=== PATIENT | female | born 2005 | race African-American/Black ===

== ENCOUNTER 2023-04-26 18:53 | Emergency (ER) | payer MEDICAID, SELFPAY ==
[2023-04-26 19:06] VITALS: BP 120/84; PULSE 78; RESP 16; TEMP 37.2; O2SAT 96; BMI 21.0
--- NOTE | 2023-04-26 19:06 | ECG_ITS ---
[facility] Test Date: 2023-04-26 Pat Name: DAISY POLANCO Department: Room: - Gender: Female Seo Specialist: : [id number] Requested By: Order Number: [id number] Reading MD: INOCENTE GIBBS Measurements Intervals [place] Rate: 67 P: 75 VT: 146 QRS: 101 QRSD: 86 T: 51 QT: 408 QTc: 423 Interpretive Statements 1100 Sinus rhythm 1102 Sinus arrhythmia 7100 Abnormal right axis deviation 9130 borderline ECG No previous ECG available for comparison Electronically Signed On 04-27-2023 7:11:57 EDT by INOCENTE GIBBS
--- NOTE | 2023-04-26 19:17 | ED.MEDCLEAR1 ---
HPI - Medical Clearance General Chief complaint: Medical Clearance Stated complaint: Medical Clearance Time Seen by Provider: 04/26/23 19:05 Source: patient Mode of arrival: walk-in History of Present Illness HPI Narrative: This 18 year-old female with a history of bipolar disorder and substance abuse presents for evaluation for medical clearance for psychiatric admission to [address] [place] [address]. She states that she was formally on Latuda for her bipolar disorder but only had a 15 day supply and when she ran out she started having some auditory hallucinations. She states that she doesn't know if it is her conscience speaking to her or voices in her head however when she is on the medication she is not experiencing the voices. She also states that the voices at times argue with each other so she does not think it's her conscience. She denies that she is suicidal but states that she recently went off the rails by that she means that she use cocaine. She states that she has been diagnosed with bipolar disorder but never diagnosed with schizophrenia. She denies any chest pain or shortness of breath. She does the possibility of but is not sure. Related Information Allergies Allergy/AdvReac Type Severity Reaction Status Date / Time sulfamethoxazole Allergy Severe Verified 04/26/23 19:06 [From Bactrim] trimethoprim [From Bactrim] Allergy Severe Verified 04/26/23 19:06 Review of Systems ROS Status of ROS 10 or more systems reviewed and unremarkable except as noted in history and below Exam Narrative Exam Narrative: Nurses note and vital signs reviewed and patient is not hypoxic. General: The patient appears well and in no apparent distress. Patient is resting comfortably on cart. Skin: Warm, dry, no pallor noted. There is no rash noted. Head: Normocephalic, atraumatic Eye: Normal conjunctiva, no drainage, EOMI. PERRL Ears, Nose, Mouth, and Throat: oral mucosa is moist. Nares patent. Multiple facial piercings Cardiovascular: Regular Rate and Rhythm On S2, no murmurs rubs or gallops Respiratory: Patient is in no distress, no accessory muscle use, lungs are clear to auscultation, no wheezing, rales or rhonchi Back: non-tender, no CVA tenderness bilaterally to percussion. GI: Normal bowel sounds, no tenderness to palpation, no masses appreciated. No rebound, guarding, or rigidity noted. Musculoskeletal: The patient has no evidence of calf tenderness, no pitting edema, symmetrical pulses noted bilaterally Neurological: A&O x4, normal speech Psychiatric: Cooperative, Admits to ongoing auditory hallucinations, denies suicidal ideation Constitutional Vital Signs, click to edit/add: Last Vital Signs Temp 98.9 F 04/26/23 19:06 Pulse 78 04/26/23 19:06 Resp 16 04/26/23 19:06 BP 120/84 04/26/23 19:06 Pulse Ox 96 04/26/23 19:06 O2 Del Method Room Air 04/26/23 19:30 Course Vital Signs Vital signs: Vital Signs Temperature 98.9 F 04/26/23 19:06 Pulse Rate 78 04/26/23 19:06 Respiratory Rate 16 04/26/23 19:06 Blood Pressure 120/84 04/26/23 19:06 Pulse Oximetry 96 04/26/23 19:06 Oxygen Delivery Method Room Air 04/26/23 19:06 Temperature 98.9 F 04/26/23 19:06 Pulse Rate 78 04/26/23 19:06 Respiratory Rate 16 04/26/23 19:06 Blood Pressure 120/84 04/26/23 19:06 Pulse Oximetry 96 04/26/23 19:06 Oxygen Delivery Method Room Air 04/26/23 19:30 MDM - Medical Clearance MDM Narrative Medical decision making narrative: This 18-year-old female presents for evaluation and for medical clearance for psychiatric admission. She is currently at [facility] center for substance abuse. She states that she was formally on Latuda and has been off of it recently relapsed on cocaine and marijuana. She denies suicidal ideation but does have a history of bipolar disorder and is having audio hallucinations. She has a normal EKG. Her labs are normal. Alcohol is negative. Tox is positive for cocaine and marijuana. The results of the medical clearance labs and EKG were discussed with [facility] and she is accepted for transfer to by Dr Edwards Lab Data Labs: Lab Results 04/26/23 Range/Units 19:20 WBC 7.6 (4.0-11.0) 10^3/uL RBC 4.25 (4.20-5.40) 10^6/uL Hgb 13.6 (12.0-16.0) g/dL Hct 39.5 (36.0-48.0) % MCV 92.9 (81.0-99.0) fL MCH 32.0 (26.7-34.0) pg MCHC 34.4 (29.9-35.2) g/dL RDW 12.5 (11.0-15.0) % Plt Count 299 (150-450) 10^3/uL MPV 9.0 L (9.5-13.5) fL Neut % (Auto) 63.0 (43.0-75.0) % Lymph % (Auto) 20.4 L (20.5-60.0) % Hale % (Auto) 8.5 (1.7-12.0) % Eos % (Auto) 7.7 H (0.9-7.0) % Baso % (Auto) 0.3 (0.2-2.0) % Neut # (Auto) 4.8 (1.4-6.5) 10^3/uL Lymph # (Auto) 1.5 (1.2-3.8) 10^3/uL Hale # (Auto) 0.6 (0.3-0.8) 10^3/uL Eos # (Auto) 0.6 (0.0-0.7) 10^3/uL Baso # (Auto) 0.0 (0.0-0.1) 10^3/uL Abs Immat Gran (auto) 0.01 (0.00-0.03) 10^3/uL Imm/Tot Granulo (auto) 0.1 (0.0-0.5) % Sodium 139 (136-145) mmol/L Potassium 3.6 (3.5-5.1) mmol/L Chloride 102 (98-107) mmol/L Carbon Dioxide 27.6 (21.0-32.0) mmol/L Anion Gap 13.0 BUN 10.0 (7.0-18.0) mg/dL Creatinine 0.88 (0.55-1.02) mg/dL Est GFR ( Amer) >60 (>=60) Est GFR (Non-Af Amer) >60 (>=60) BUN/Creatinine Ratio 11.4 Glucose 96 (74-106) mg/dL Calcium 8.7 (8.5-10.1) mg/dL Total Bilirubin 0.5 (0.2-1.0) mg/dL AST 14 L (15-37) U/L ALT 19 (14-59) U/L Alkaline Phosphatase 98 (46-116) U/L Total Protein 7.5 (6.4-8.2) g/dL Albumin 3.7 (3.4-5.0) g/dL Globulin 3.8 g/dL Albumin/Globulin Ratio 1.0 Serum HCG, Qual Negative (NEGATIVE) Urine Opiates Screen Negative (NEGATIVE) Ur Buprenorphine Scrn Negative (NEGATIVE) Ur Oxycodone Screen Negative (NEGATIVE) Urine Methadone Screen Negative (NEGATIVE) Ur Propoxyphene Screen Negative (NEGATIVE) Ur Barbiturates Screen Negative (NEGATIVE) U Tricyclic Antidepress Negative (NEGATIVE) Ur Phencyclidine Scrn Negative (NEGATIVE) Ur Amphetamines Screen Negative (NEGATIVE) U Methamphetamines Scrn Negative (NEGATIVE) U Benzodiazepines Scrn Negative (NEGATIVE) Urine Cocaine Screen Positive A (NEGATIVE) U Cannabinoids Screen Positive A (NEGATIVE) Ethanol Quant <3 mg/dL ECG Data Attestation: I personally reviewed and interpreted this ECG as follows: (Sinus rhythm at 67 beats for minute, normal axis, normal intervals, no acute ST segment elevation or T-wave inversion) Discharge Plan Discharge Chief Complaint: Medical Clearance Clinical Impression: Substance abuse, Bipolar disorder, Auditory hallucinations Patient Disposition: [facility] Time of Disposition Decision: 20:42 Discharge Location: [facility]
[2023-04-26 19:33] LABS: Basophils Percent Auto 0.3 % (0.2-2.0); Eosinophils Absolute Auto 0.6 10^3/uL (0.0-0.7); Eosinophils Percent Auto 7.7 % (0.9-7.0); Hematocrit 39.5 % (36.0-48.0); Hemoglobin 13.6 g/dL (12.0-16.0); Immature Granulocytes Abs Auto 0.01 10^3/uL (0.00-0.03); Immature Granulocytes Pct Auto 0.1 % (0.0-0.5); Lymphocytes Absolute Auto 1.5 10^3/uL (1.2-3.8); Lymphocytes Percent Auto 20.4 % (20.5-60.0); Mean Corpuscular HGB Conc 34.4 g/dL (29.9-35.2); Mean Corpuscular Volume 92.9 fL (81.0-99.0); Monocytes Absolute Auto 0.6 10^3/uL (0.3-0.8); Monocytes Percent Auto 8.5 % (1.7-12.0); Neutrophils Absolute Auto 4.8 10^3/uL (1.4-6.5); Platelet Count 299 10^3/uL (150-450); Red Blood Count 4.25 10^6/uL (4.20-5.40); Red Cell Distribution Width 12.5 % (11.0-15.0); White Blood Count 7.6 10^3/uL (4.0-11.0)
[2023-04-26 19:43] LABS: Cannabinoid Screen Urine POSITIVE (NEGATIVE); HCG Qualitative NEGATIVE (NEGATIVE)
[2023-04-26 19:44] LABS: Amphetamine Screen Urine NEGATIVE (NEGATIVE); Barbiturates Screen Urine NEGATIVE (NEGATIVE); Benzodiazepines Screen Urine NEGATIVE (NEGATIVE); Buprenorphine Screen Urine NEGATIVE (NEGATIVE); Cocaine Screen Urine POSITIVE (NEGATIVE); Methadone Screen Urine NEGATIVE (NEGATIVE); Methamphetamines Screen Urine NEGATIVE (NEGATIVE); Opiate Screen Urine NEGATIVE (NEGATIVE); Oxycodone Screen Urine NEGATIVE (NEGATIVE); Phencyclidine Screen Urine NEGATIVE (NEGATIVE); Tricyclic Antidepressant Urine NEGATIVE (NEGATIVE)
[2023-04-26 19:50] LABS: Alanine Aminotransferase 19 U/L (14-59); Albumin Level 3.7 g/dL (3.4-5.0); Alkaline Phosphatase 98 U/L (46-116); Aspartate Amino Transferase 14 U/L (15-37); BUN Creatinine Ratio 11.4; Bilirubin Total 0.5 mg/dL (0.2-1.0); Calcium 8.7 mg/dL (8.5-10.1); Carbon Dioxide 27.6 mmol/L (21.0-32.0); Chloride 102 mmol/L (98-107); Estimated GFR (African America >60 (>=60); Estimated GFR (Non-African Ame >60 (>=60); Ethanol <3 mg/dL; Globulin 3.8 g/dL; Glucose 96 mg/dL (74-106); Potassium 3.6 mmol/L (3.5-5.1); Sodium 139 mmol/L (136-145); Total Protein 7.5 g/dL (6.4-8.2)
[2023-04-26 22:57] VITALS: BP 149/82; PULSE 60; RESP 16; O2SAT 98
--- NOTE | 2023-04-26 23:04 | PC.NURSE ---
Report called to Nando at [address] Waiting for [facility] car to arrive Pt ready for transfer at this time
== END 2023-04-27 00:09 ==
PROVIDERS: Emergency Provider Emergency Medicine
DX: F31.9 Bipolar disorder, unspecified (principal); R44.0 Auditory hallucinations; F14.10 Cocaine abuse, uncomplicated; F12.10 Cannabis abuse, uncomplicated
CPT/HCPCS: 36415; 80053; 80307; 80320; 84703; 85025; 93005; 99285